=== PATIENT | female | born 1985 | race Caucasian/White ===

== ENCOUNTER 2021-09-19 20:52 | Emergency (ER) | payer OTHER ==
[~2021-09-19] VITALS: Ht 162.6 cm; Wt 88.3 kg
[2021-09-19 21:02] VITALS: BP 147/86
--- NOTE | 2021-09-19 21:34 | PHYS DOC ---
Past History Past Surgical History: , Tonsillectomy Additional Past Surgical Histo: shoulder surgery x2 (FRANSISCO NAVARRO APRN) General Adult EDM: Chief Complaint: CHEST PAIN HPI: HPI: Patient is a 35-year-old female who presents to the emergency department for chest pain. Patient is reporting midsternal chest tightness that started this afternoon that is gotten worse into the evening. She rates it 7 out of 10 when she feels the pain but it is intermittent and currently she is not having any pain. She reports that the chest pain does radiate to bilateral ribs. She states that she has been having a dry cough and she thought that the chest pain was due to that but it got worse. Patient is also reporting nausea, vomiting and shortness of breath. Patient is approximately 26 weeks . Her MATERIAL CLERK is Dr. Jain at [facility]. Patient is . She reports no complications with this but she did have preeclampsia with her first . She is reporting blurred vision in both eyes. She denies any floaters. Her blood pressure is mildly elevated in the emergency department at 147/86. Patient does feel movement. She denies any vaginal bleeding, leaking of fluids or fevers. (FRANSISCO NAVARRO APRN) Review of Systems: Review of Systems: Constitutional: See HPI Eyes: See HPI Respiratory: See HPI Cardiovascular: See HPI GI: See HPI : See HPI (FRANSISCO NAVARRO APRN) Allergies: Allergies: Allergies Coded Allergies Type Severity Reaction Last Updated Verified No Known Drug Allergies 09/19/21 No (FRANSISCO NAVARRO APRN) Physical Exam: PE: Constitutional: Well developed, well nourished, no acute distress, non-toxic appearance. [] HENT: Normocephalic, atraumatic, bilateral external ears normal, oropharynx moist, no oral exudates, nose normal. [] Eyes: PERRL, EOMI, conjunctiva normal, no discharge. [] Neck: Normal range of motion, no tenderness, supple, no stridor. [] Cardiovascular:Heart rate tachycardia rhythm, no murmur, midsternal chest wall tenderness with palpation [] Lungs & Thorax: Bilateral breath sounds clear to auscultation [] Abdomen: Bowel sounds normal, soft, no tenderness, abdomen, no masses, no pulsatile masses. [] Skin: Warm, dry, no erythema, no rash. [] Back: No tenderness, motion Extremities: No tenderness, no cyanosis, no clubbing, ROM intact, no edema. [] Neurologic: Alert and oriented X 3, normal motor function, normal sensory function, no focal deficits noted. [] Psychologic: Affect normal, judgement normal, mood normal. [] (FRANSISCO NAVARRO APRN) Current Patient Data: Vital Signs: Vital Signs Date Time Temp Pulse Resp B/P (MAP) Pulse Ox O2 Delivery O2 Flow Rate FiO2 09/19/21 21:02 110 24 147/86 (106) 96 Room Air (FRANSISCO NAVARRO APRN) EKG: EKG: EKG performed by ER staff at 2105 shows sinus tachycardia with a rate of 101, no STEMI read by Dr. Navarrete [] (FRANSISCO NAVARRO APRN) Radiology/Procedures: Radiology/Procedures: [] (FRANSISCO NAVARRO APRN) Radiology/Procedures: [address] [address] IMAGING REPORT Signed PATIENT: CLOVER ZURITA ACCOUNT: [id number] : 1985 LOCATION: ER AGE: 35 SEX: F EXAM STATUS: PRE ER ORD. PHYSICIAN: FRANSISCO NAVARRO APRN REASON: soa PROCEDURE: PORTABLE CHEST 1V XR CHEST 1V Clinical History: Reason: soa / Spl. Instructions: / History: Technique: AP view of the chest was obtained at 09/19/2021 9:33 PM. Comparison: None. Findings: The cardiomediastinal silhouette is normal. The pulmonary vasculature is normal. There is subtle groundglass opacities in the lower lungs. Impression: Mild infiltrates could be early atypical pneumonia. Electronically signed by: Arvin Khan III, MD (09/19/2021 10:35 PM) [facility] DICTATED AND SIGNED BY: ARVIN KHAN III, MD DATE: 09/19/21 [id number] CC: KRISTEN NAVARRETE MD; FRANSISCO NAVARRO APRN; ALIX DELGADO ~ [address] [place] [id number] IMAGING REPORT Signed PATIENT: CLOVER ZURITA ACCOUNT: [id number] : 1985 LOCATION: ER AGE: 35 SEX: F EXAM STATUS: PRE ER ORD. PHYSICIAN: FRANSISCO NAVARRO APRN REASON: soa PROCEDURE: PORTABLE CHEST 1V XR CHEST 1V Clinical History: Reason: soa / Spl. Instructions: / History: Technique: AP view of the chest was obtained at 09/19/2021 9:33 PM. Comparison: None. Findings: The cardiomediastinal silhouette is normal. The pulmonary vasculature is normal. There is subtle groundglass opacities in the lower lungs. Impression: Mild infiltrates could be early atypical pneumonia. Electronically signed by: Arvin Khan III, MD (09/19/2021 10:35 PM) [facility] DICTATED AND SIGNED BY: ARVIN KHAN III, MD DATE: 09/19/212233 CC: KRISTEN NAVARRETE MD; FRANSISCO NAVARRO APRN; ALIX DELGADO (KRISTEN NAVARRETE MD) Heart Score: C/O Chest Pain: Yes HEART Score for Chest Pain: HEART Score for Chest Pain Response (Comments) Value History Slighlty/Non-Suspicious 0 ECG Normal 0 Age < 45 0 Risk Factors No Risk Factors 0 Total 0 Risk Factors: Risk Factors: DM, Current or recent (<one month) smoker, HTN, HLP, family history of CAD, obesity. Risk Scores: Score 0 - 3: 2.5% MACE over next 6 weeks - Discharge Home Score 4 - 6: 20.3% MACE over next 6 weeks - Admit for Clinical Observation Score 7 - 10: 72.7% MACE over next 6 weeks - Early Invasive Strategies (FRANSISCO NAVARRO APRN) Course & Med Decision Making: Course & Med Decision Making Pertinent Labs and Imaging studies reviewed. (See chart for details) [] Patient presents to the emergency department for chest pain. Patient is 26 weeks . She is also reporting nausea, vomiting, shortness of breath and blurred vision in both eyes. Work-up in the ER consisted of blood work including troponin, EKG. Urinalysis performed to rule out infection and protein. heart tones obtained and they are 150. 215: Awaiting results of patient's work-up at this time. I discussed patient's case with Dr. Navarrete of his inpatient care at this time due to shift change. (FRANSISCO NAVARRO APRN) Course & Med Decision Making Impression: 1. Atypical Pneumonia 2. COVID + 3. Gravid 26 weeks (KRISTEN NAVARRETE MD) Dragon Disclaimer: Dragon Disclaimer: This electronic medical record was generated, in whole or in part, using a voice recognition dictation system. (FRANSISCO NAVARRO APRN) Departure Departure: Referrals: ALIX DELGADO (PCP) Attending Signature Attending Signature I have participated in the care of this patient and I have reviewed and agree with all pertinent clinical information above including history, exam, and recommendations. (KRISTEN NAVARRETE MD) Dragon Disclaimer This chart was dictated in whole or in part using Voice Recognition software in a busy, high-work load, and often noisy Emergency Department environment. It may contain unintended and wholly unrecognized errors or omissions. (KRISTEN NAVARRETE MD) FRANSISCO NAVARRO APRN September 19, 2021 21:34 KRISTEN NAVARRETE MD September 19, 2021 22:49
[2021-09-19 22:30] LABS: BASO % 0 % (0-3); EOS # 0.1 x10^3/uL (0.0-0.7); EOS % 1 % (0-3); HEMATOCRIT 36.6 % (36.0-47.0); HEMOGLOBIN 12.2 g/dL (12.0-15.5); LYMPH # 1.6 x10^3/uL (1.0-4.8); LYMPH % 14 % (24-48); MEAN CORPUSCULAR HEMOGLOBIN 30 pg (25-35); MEAN CORPUSCULAR HGB CONC 33 g/dL (31-37); MEAN CORPUSCULAR VOLUME 89 fL (79-100); MONO # 1.1 x10^3/uL (0.0-1.1); MONO % 9 % (0-9); NEUT # 9.1 x10^3uL (1.8-7.7); NEUT % 77 % (31-73); PLATELET COUNT 241 x10^3/uL (140-400); RED BLOOD COUNT 4.09 x10^6/uL (3.50-5.40); RED CELL DISTRIBUTION WIDTH 13.2 % (11.5-14.5); WHITE BLOOD COUNT 11.9 x10^3/uL (4.0-11.0)
[2021-09-19 22:32] LABS: CLARITY,URINE CLEAR; COLOR,URINE YELLOW; GLUCOSE,URINE NEG (NEG); NITRITE,URINE NEG (NEG); RBC,URINE OCC /HPF (0-2); UROBILINOGEN,URINE 0.2 mg/dL (0.2 mg/dL)
[2021-09-19 22:33] LABS: BACTERIA,URINE MOD /HPF (0-FEW); SQUAMOUS EPITHELIAL CELL,UR MOD /LPF
[2021-09-19 22:38] LABS: CALCIUM 8.7 mg/dL (8.5-10.1); CREATININE 0.6 mg/dL (0.6-1.0); GFR 115.1; POTASSIUM 4.1 mmol/L (3.5-5.1)
--- NOTE | 2021-09-19 22:38 | RAD ---
XR CHEST 1V Clinical History: Reason: soa / Spl. Instructions: / History: Technique: AP view of the chest was obtained at 09/19/2021 9:33 PM. Comparison: None. Findings: The cardiomediastinal silhouette is normal. The pulmonary vasculature is normal. There is subtle grou ndglass opacities in the lower lungs. Impression: Mild infiltrates could be early atypical pneumonia. Electronically signed by: Armin Henry III, MD (09/19/2021 10:35 PM) [facility]
[2021-09-19 22:43] LABS: ALBUMIN 2.7 g/dL (3.4-5.0); ALBUMIN/GLOBULIN RATIO 0.9 (1.0-1.7); TOTAL BILIRUBIN 0.2 mg/dL (0.2-1.0); TOTAL PROTEIN 5.7 g/dL (6.4-8.2)
[2021-09-19 22:45] LABS: INFLUENZA A PATIENT NEGATIVE (NEGATIVE); INFLUENZA B PATIENT NEGATIVE (NEGATIVE)
[2021-09-19] MEDS ORDERED: ALBUTEROL SULFATE 8GM INHALER. INH ONE (23:30)
== END 2021-09-19 23:45 | disposition left against medical advice (07) ==
LOC: ER 20:52
DX: O98.512 Other viral diseases complicating pregnancy, second trimester (principal); U07.1 COVID-19; O99.512 Diseases of the respiratory system complicating pregnancy, second trimester; J18.9 Pneumonia, unspecified organism; Z3A.26 26 weeks gestation of pregnancy
CPT/HCPCS: 36415; 71045; 80053; 81001; 83735; 84484; 85025; 87086; 87428; 93005; 99285; C9803; U0003